=== PATIENT | female | born 1980 | race Caucasian/White ===

== ENCOUNTER 2019-11-24 17:20 | Emergency (ER) | payer BC, MEDICAID ==
[~2019-11-24] VITALS: Ht 172.7 cm; Wt 98.3 kg
[~2019-11-24 17:20] MED LIST: PROC-8 PO
[2019-11-24 17:32] VITALS: BP 121/79
[2019-11-24] MEDS ORDERED: PRED20TA PO (19:07)
[2019-11-24] MEDS ORDERED: famotidine 20mg tablet PO ONE (19:10)
[2019-11-24] MEDS ORDERED: predniSONE 20 mg tablet PO ONE (19:10)
== END 2019-11-24 19:20 | disposition home or self-care (01) ==
LOC: ER 17:20
DX: L25.9 Unspecified contact dermatitis, unspecified cause (principal); E03.9 Hypothyroidism, unspecified; Z72.89 Other problems related to lifestyle; Z88.0 Allergy status to penicillin; Z88.2 Allergy status to sulfonamides; Z88.5 Allergy status to narcotic agent; Z88.8 Allergy status to other drugs, medicaments and biological substances; Z79.899 Other long term (current) drug therapy
CPT/HCPCS: 99283; J7512

== ENCOUNTER 2019-12-03 07:33 | Emergency (ER) | payer BC ==
[~2019-12-03] VITALS: Ht 172.7 cm; Wt 100.0 kg
[2019-12-03] MEDS ORDERED: dexamethasone 4mg tablet PO ONE (08:30)
[2019-12-03] MEDS ORDERED: famotidine 10mg tablet PO ONE (08:30)
[2019-12-03] MEDS ORDERED: PRED20TA PO (08:48)
[2019-12-03] MEDS ORDERED: CLIN150C2 PO (08:48)
[2019-12-03] MEDS: epiNEPHrine 1 mg/ml inj SQ PRN ×3 (08:49→10:05)
[2019-12-03] MEDS ORDERED: clindamycin 150mg capsule PO ONE (08:50)
[2019-12-03 09:26] VITALS: BP 123/75
== END 2019-12-03 10:17 | disposition home or self-care (01) ==
LOC: ER 07:33
DX: T78.40XA Allergy, unspecified, initial encounter (principal); L30.9 Dermatitis, unspecified; E03.9 Hypothyroidism, unspecified; Z72.89 Other problems related to lifestyle; Z91.040 Latex allergy status; Z88.0 Allergy status to penicillin; Z88.2 Allergy status to sulfonamides; Z88.5 Allergy status to narcotic agent; Z79.899 Other long term (current) drug therapy; X58.XXXA Exposure to other specified factors, initial encounter
CPT/HCPCS: 96372; 99284; J0171

== ENCOUNTER 2020-01-30 14:34 | Emergency (ER) | payer BC ==
[~2020-01-30] VITALS: Ht 172.7 cm; Wt 97.7 kg
[2020-01-30 16:01] VITALS: BP 137/94
== END 2020-01-30 16:06 | disposition home or self-care (01) ==
LOC: ER 14:36
DX: Z03.818 Encounter for observation for suspected exposure to other biological agents ruled out (principal); E03.9 Hypothyroidism, unspecified; Z72.89 Other problems related to lifestyle; Z88.2 Allergy status to sulfonamides; Z88.0 Allergy status to penicillin; Z88.5 Allergy status to narcotic agent; Z91.018 Allergy to other foods; Z79.899 Other long term (current) drug therapy
CPT/HCPCS: 36415; 99282

== ENCOUNTER 2021-01-03 13:44 | Emergency (ER) | payer BC, MEDICAID ==
[~2021-01-03] VITALS: Ht 170.2 cm; Wt 91.0 kg
[2021-01-03] MEDS ORDERED: diphenhydrAMINE 25mg capsule PO ONE (14:05)
[2021-01-03] MEDS ORDERED: famotidine 20mg tablet PO ONE (14:05)
[2021-01-03] MEDS ORDERED: predniSONE 20 mg tablet PO ONE (14:05)
[2021-01-03] MEDS ORDERED: prednisone 10mg tablet PO ONE (14:10)
[2021-01-03] MEDS ORDERED: DIPH25CA83 PO (14:53)
[2021-01-03] MEDS ORDERED: FAMO40TA58 PO (14:53)
[2021-01-03] MEDS ORDERED: PRED50TA PO (14:53)
--- NOTE | 2021-01-03 15:43 | NUR ---
pt was seen and treated by provider prior to nurses notes
[2021-01-03 15:44] VITALS: BP 122/91
== END 2021-01-03 15:46 | disposition home or self-care (01) ==
LOC: ER 13:45
DX: L23.2 Allergic contact dermatitis due to cosmetics (principal); E06.9 Thyroiditis, unspecified; Z91.040 Latex allergy status; Z88.0 Allergy status to penicillin; Z88.2 Allergy status to sulfonamides; Z79.899 Other long term (current) drug therapy
CPT/HCPCS: 99284; J7512; Q0163